=== PATIENT | female | born 1990 | race Caucasian/White ===

== ENCOUNTER 2016-12-06 15:02 | Inpatient (IN) | payer MEDICAID ==
[~2016-12-06] VITALS: Ht 157.5 cm; Wt 77.0 kg
[2016-12-06 15:05] VITALS: Ht 157.5 cm; Wt 77.0 kg
[2016-12-06] MEDS ORDERED: ONDANSETRON 4 MG INJ IV STA ×2 (18:45→20:45)
[2016-12-06] MEDS ORDERED: morphine 4 MG/ML VIAL IV STA ×2 (18:45→20:45)
[2016-12-06] MEDS ORDERED: SOD CHLORIDE 0.9% 100 ML IV STA (18:45)
[2016-12-06 19:25] LABS: ADD UMIC NO; URINE BILIRUBIN (Dip) NEGATIVE (NEGATIVE); URINE BLOOD (Dip) NEGATIVE (NEGATIVE); URINE COLOR LT. YELLOW (YELLOW); URINE GLUCOSE (Dip) NEGATIVE (NEGATIVE); URINE KETONES (Dip) NEGATIVE (NEGATIVE); URINE LEUKOCYTE ESTERASE (Dip) NEGATIVE (NEGATIVE); URINE NITRITE (Dip) NEGATIVE (NEGATIVE); URINE TOTAL PROTEIN (Dip) NEGATIVE (NEGATIVE); URINE UROBILINOGEN (Dip) 0.2 E.U./dL (0.1-1.0)
[2016-12-06 19:33] LABS: BASOPHILS % 0.5 % (0.0-2.0); EOSINOPHILS # 0.2 10^3/ul (0.0-0.5); EOSINOPHILS % 2.2 % (0.0-7.0); HEMATOCRIT 40.4 % (37.0-47.0); HEMOGLOBIN 13.8 g/dl (12.0-16.0); LYMPHOCYTES # 2.2 10^3/ul (0.8-2.9); LYMPHOCYTES % 22.3 % (15.0-51.0); MEAN CORPUSCULAR HEMOGLOBIN 29.8 pg (29.0-33.0); MEAN CORPUSCULAR HGB CONC 34.2 g/dl (32.0-37.0); MEAN CORPUSCULAR VOLUME 87.4 fl (82.0-101.0); MEAN PLATELET VOLUME 7.8 fl (7.4-10.4); MONOCYTE # 0.6 10^3/ul (0.3-0.9); MONOCYTES % 6.1 % (0.0-11.0); NEUTROPHIL # 6.7 10^3/ul (1.6-7.5); NEUTROPHILS % 68.9 % (39.0-77.0); PLATELET COUNT 356 10^3/UL (140-440); RED BLOOD COUNT 4.63 10^6/ul (4.20-5.40); RED CELL DISTRIBUTION WIDTH 13.5 % (11.5-14.5); UNCORRECTED WBC 9.8 10^3/ul (4.8-10.8); WHITE BLOOD COUNT 9.8 10^3/ul (4.8-10.8)
--- NOTE | 2016-12-06 19:35 | ERD ---
ER Documentation Chief Complaint Date/Time DATE: 12/06/16 TIME: 19:30 Chief Complaint PLEVIC PAIN, HAS ALWAYS PRE MENSES SAID HPI Patient is a 26-year-old female who presents to the ED with right low back pain , pelvic pain that radiates to her right knee. She states that this pain has been constant for the last 2 days but it has been getting worse today. She denies any trauma or injury. She states that she developed rlq pain 10 days and states it has gotten worse in the last 2 days ago. She describes it as a crampy sensation, 10 out of 10. She states that she is unable to walk due to the pain in her leg. She states that she has to lift her leg up to walk. she states that today at the gym, she collapsed from the pain. Denies urinary symptoms. Denies fever or chills. She has been taking ibuprofen with no relief of symptoms. Denies abnormal vaginal bleeding. Last menstrual period was 11/22/16. Denies leg pain or swelling. Denies chest pain, cough, shortness of breath or difficulty breathing. ROS All systems reviewed and are negative except as per history of present illness. Medications Home Meds Reported Medications [None] No Conflict Check 10/18/12 Allergies Allergies: Coded Allergies: No Known Drug Allergies (Verified Allergy, Unknown, 12/06/16) Uncoded Allergies: NONE (Allergy, Unknown, 12/06/16) PMhx/Soc Medical and Surgical Hx: pt denies Medical Hx, pt denies Surgical Hx History of Surgery: No Anesthesia Reaction: No Hx Neurological Disorder: No Hx Respiratory Disorders: No Hx Cardiac Disorders: No Hx Psychiatric Problems: No Hx Miscellaneous Medical Probl: No Hx Alcohol Use: No Hx Substance Use: No Hx Tobacco Use: No Smoking Status: Never smoker Physical Exam Vitals Vital Signs Date Time Temp Pulse Resp B/P Pulse Ox O2 Delivery O2 Flow Rate FiO2 12/06/16 15:05 98.1 78 18 139/75 99 Physical Exam GENERAL: Well-developed, well-nourished female. Appears in mild distress. LUNG: Clear to auscultation bilaterally. No rhonchi, wheezing, rales or coarse breath sounds. HEART: Regular rate and rhythm. No murmurs, rubs or gallops. ABDOMEN: No scars, ecchymosis or rashes noted. very tender in rlq and right pelvic area. . Positive bowel sounds in all four quadrants. guarding. tender in right CVA. Extremities: Equal pulses bilaterally. No peripheral clubbing, cyanosis or edema. No unilateral leg swelling. NEUROLOGIC: Alert and oriented. Moving all four extremities. 5/5 strength in all extremities. Normal speech. non steady gait. SKIN: Normal color. Warm and dry. No rashes or lesions. Capillary refill < 2 seconds Result Diagram: 12/06/16190912/06/161909 Results 24 hrs Laboratory Tests Test 12/06/16 19:00 12/06/16 19:10 Urine Bilirubin NEGATIVE Urine Clarity CLEAR Urine Color LT. YELLOW Urine Glucose NEGATIVE% Urine Hemoglobin NEGATIVE Urine Ketones NEGATIVE Urine Leukocyte Esterase NEGATIVE Urine Nitrite NEGATIVE Urine Test NEGATIVE Urine Specific [place] 1.015 Urine Total Protein NEGATIVE Urine Urobilinogen 0.2 E.U./dL Urine pH 6.0 Alanine Aminotransferase (ALT/SGPT) 28IU/L Albumin 4.6g/dl Albumin/Globulin Ratio 1.06 Alkaline Phosphatase 83IU/L Anion Gap 17 Aspartate Amino Transf (AST/SGOT) 25IU/L Basophils # 0.010^3/ul Basophils % 0.5% Blood Urea Nitrogen 12mg/dl Calcium Level 9.3mg/dl Carbon Dioxide Level 29mmol/L Chloride Level 101mmol/L Creatinine 0.73mg/dl Direct Bilirubin 0.00mg/dl Eosinophils # 0.210^3/ul Eosinophils % 2.2% Globulin 4.30g/dl Glucose Level 88mg/dl Hematocrit 40.4% Hemoglobin 13.8g/dl Indirect Bilirubin 0.6mg/dl Lipase 80U/L Lymphocytes # 2.210^3/ul Lymphocytes % 22.3% Mean Corpuscular Hemoglobin 29.8pg Mean Corpuscular Hemoglobin Concent 34.2g/dl Mean Corpuscular Volume 87.4fl Mean Platelet Volume 7.8fl Monocytes # 0.610^3/ul Monocytes % 6.1% Neutrophils # 6.710^3/ul Neutrophils % 68.9% Nucleated Red Blood Cells # 0.010^3/ul Nucleated Red Blood Cells % 0.0/100WBC Platelet Count 24933^3/UL Potassium Level 3.8mmol/L Red Blood Count 4.6310^6/ul Red Cell Distribution Width 13.5% Sodium Level 143mmol/L Total Bilirubin 0.6mg/dl Total Protein 8.9g/dl White Blood Count 9.810^3/ul Current Medications Medications (Trade) Dose Ordered Sig/Fabio Route PRN Reason Start Time Stop Time Status Last Admin Dose Admin Sodium Chloride (NS) 100 ml @ 100 mls/hr Q1H STAT IV 12/06/16 18:45 12/06/16 19:44 DC 12/06/16 19:14 Morphine Sulfate (morphine) 4 mg ONCE STAT IV 12/06/16 18:45 12/06/16 18:48 DC 12/06/16 19:14 Ondansetron HCl (Zofran Inj) 4 mg ONCE STAT IV 12/06/16 18:45 12/06/16 18:48 DC 12/06/16 19:14 Morphine Sulfate (morphine) 4 mg ONCE STAT IV 12/06/16 20:45 12/06/16 20:46 DC 12/06/16 20:54 Ondansetron HCl (Zofran Inj) 4 mg ONCE STAT IV 12/06/16 20:45 12/06/16 20:46 DC 12/06/16 20:54 Hydromorphone HCl 1 mg 1 mg ONCE STAT IV 12/06/16 21:24 12/06/16 21:25 DC 12/06/16 21:33 Sodium Chloride (NS) 1,000 ml @ 1,000 mls/hr Q1H ONCE IV 12/06/16 21:30 12/06/16 22:29 DC 12/06/16 21:35 Procedures/MDM ER COURSE: I kept the patient and/or family informed of laboratory and diagnostic imaging results throughout the emergency room course. EKG, MONITORS, & DIAGNOSTIC IMAGING: [place] [address] Radiology Main Line: [phone] DIAGNOSTIC IMAGING REPORT Patient: BHUPINDER MELTON : 1990 Age: 26 Sex: F MR #: [id number] DOS: 12/06/16 1845 Ordering MD: OSCAR RAINES PA-C Location: [facility] Room/Bed: PROCEDURE: CT abdomen and pelvis without contrast. CLINICAL INDICATION: Right-sided abdominal and back pain TECHNIQUE: CT scan of the abdomen and pelvis without contrast was performed on a multislice CT scanner utilizing axial imaging from the lung bases through the pubis symphysis. The patient was scanned without intravenous contrast. Sagittal and coronal reformatted images were made. The CTDIvol is 10.08 mGy and the DLP is 507.18 mGycm. One of the following 3 dose reduction techniques were used during this CT examination: automated exposure control; adjustment of the mA and /or kV according to patient size; or use of iterative reconstruciton technique. COMPARISON: 11/13/2007 CT FINDINGS: The lung bases are clear. The heart size is normal. No pericardial or pleural effusion is present. The visualized liver and, spleen, pancreas, gallbladder, bilateral adrenal glands are normal. The bilateral kidneys are normal. No evidence for hydroureteronephrosis or nephroureterolithiasis is present. The visualized bowel is nonobstructive. No evidence for diverticulosis, diverticulitis, or appendicitis is present. The visualized aorta is normal on this limited noncontrast CT without evidence for aneurysmal dilatation. No evidence for ascites, pneumoperitoneum, or pathologic lymphadenopathy is noted. The visualized pelvis demonstrates a moderately well distended urinary bladder. The uterus is normal with an intrauterine device present. Small amount of pelvic ascites is present. The bilateral adnexa are normal. The imaged osseous structures are normal. IMPRESSION: 1. No evidence for acute intra-abdominal or pelvic pathology. 2. Intrauterine device in the uterus with mild pelvic ascites. [place] [address] Radiology Main Line: [phone] DIAGNOSTIC IMAGING REPORT Patient: BHUPINDER MELTON : 1990 Age: 26 Sex: F MR #: [id number] DOS: 12/06/16 1845 Ordering MD: OSCAR RAINES PA-C Location: [facility] Room/Bed: PROCEDURE: US Pelvis and a limited ultrasound of the abdomen CLINICAL INDICATION: pelvic pain r/o torsion TECHNIQUE: Multiple sonographic images of the pelvis and right lower abdominal quadrant were obtained utilizing a transabdominal and endovaginal technique. The images were reviewed on a PACS workstation. COMPARISON: None. LMP: 11/22/2016 FINDINGS: The uterus measures 7.0 x 3.4 x 4.7 cm. The endometrial echo complex measures 8 mm in thickness. An appropriately positioned intrauterine device is noted. The right ovary measures 3.8 x 1.6 x 3.4 cm. The left ovary measures 3.7 x 1.9 x 2.9 cm. There is normal vascular flow in both ovaries. Multiple sub centimeter peripheral ovarian follicles are noted on the right. There is moderate to severe free fluid in the right adnexa. Trace free fluid is noted in the left adnexa. Loops of bowel are noted in the right lower abdominal quadrant. The appendix is not identified. IMPRESSION: Moderate to severe fluid is noted primarily in the right adnexa. No complex cystic lesions are identified in the right ovary to suggest rupture of a hemorrhagic cyst. Clinical correlation is recommended. The left ovary is unremarkable. There is normal vascular flow in bilateral ovaries. An appropriately positioned intrauterine device is noted. The appendix is not identified. Consider obtaining a CT study with intravenous contrast for further evaluation of possible appendicitis as well as the source of the free fluid in the right adnexa. RPTAT: EE Physician Arnold Date Time Electronically viewed and signed by Physician Arnold on 12/06/2016 20:38 RA/ CC: OSCAR RAINES PA-C RPTAT: HDC .Digna Mcgrath MD, MD Date Time Electronically viewed and signed by .Digna Mcgrath MD, MD on 12/06/2016 20: 48 .C/ CC: OSCAR RAINES PA-C LAB INTERPRETATION: CBC showed no evidence of systemic infection or severe anemia. CMP showed no evidence of electrolyte abnormalities, severe acidosis, alkalosis, renal failure , or liver disease. Lipase showed no evidence of acute pancreatitis. UA showed no evidence of leukocytes, nitrites or hematuria. Urine test was negative. MEDICAL DECISION MAKING: This is a 26-year-old female who presents with [right lower quadrant pain and right pelvic pain]. Vital signs were reviewed. Patient is afebrile. Patient is not hypoxic. Patient describes her pain as a 10 out of 10. I have ordered a morphine, Zofran and 2 L of fluid. Patient is still in 10 out of 10 pain I have consulted with Dr. Gibbs was ordered Dilaudid. Patient states there is no improvement in her pain. Dr. Gibbs came to bedside to examine patient and will be admitting patient. Patient is stable at transfer to ED1. Diagnosis: abdominal pain, intractable pain Departure Diagnosis: Primary Impression: Pelvic pain Condition: OSCAR Dunn PA-C Dec 06, 2016 19:35
[2016-12-06 19:36] LABS: ALBUMIN 4.6 g/dl (3.3-4.9)
[2016-12-06 19:37] LABS: POTASSIUM 3.8 mmol/L (3.5-5.1)
[2016-12-06 19:39] LABS: ALBUMIN/GLOBULIN RATIO 1.06; BILIRUBIN,INDIRECT 0.6 mg/dl (0-1.1); BILIRUBIN,TOTAL 0.6 mg/dl (0.2-1.3); CREATININE 0.73 mg/dl (0.44-1.00); TOTAL PROTEIN 8.9 g/dl (6.1-8.1)
[2016-12-06 19:40] LABS: CALCIUM 9.3 mg/dl (8.4-10.2)
[2016-12-06 19:44] LABS: CONDITION 1
--- NOTE | 2016-12-06 20:38 | RADRPT ---
PROCEDURE: US Pelvis and a limited ultrasound of the abdomen CLINICAL INDICATION: pelvic pain r/o torsion TECHNIQUE: Multiple sonographic images of the pelvis and right lower abdominal quadrant were obtai matilde utilizing a transabdominal and endovaginal technique. The images were reviewed on a PACS works tation. COMPARISON: None. LMP: 11/22/2016 FINDINGS: The uterus measures 7.0 x 3.4 x 4.7 cm. The endometrial echo complex measures 8 mm in thickness. A n appropriately positioned intrauterine device is noted. The right ovary measures 3.8 x 1.6 x 3.4 cm. The left ovary measures 3.7 x 1.9 x 2.9 cm. There is no rmal vascular flow in both ovaries. Multiple sub centimeter peripheral ovarian follicles are noted o n the right. There is moderate to severe free fluid in the right adnexa. Trace free fluid is noted in the left a dnexa. Loops of bowel are noted in the right lower abdominal quadrant. The appendix is not identified. IMPRESSION: Moderate to severe fluid is noted primarily in the right adnexa. No complex cystic lesions are iden tified in the right ovary to suggest rupture of a hemorrhagic cyst. Clinical correlation is recomme nded. The left ovary is unremarkable. There is normal vascular flow in bilateral ovaries. An appropriately positioned intrauterine device is noted. The appendix is not identified. Consider obtaining a CT study with intravenous contrast for further evaluation of possible appendicitis as well as the source of the free fluid in the right adnexa. RPTAT: EE Physician Arnold Date Time Electronically viewed and signed by Physician Arnold on 12/06/2016 20:38 /
--- NOTE | 2016-12-06 20:48 | RADRPT ---
PROCEDURE: CT abdomen and pelvis without contrast. CLINICAL INDICATION: Right-sided abdominal and back pain TECHNIQUE: CT scan of the abdomen and pelvis without contrast was performed on a multislice CT [facility] utilizing axial imaging from the lung bases through the pubis symphysis. The patient was scann ed without intravenous contrast. Sagittal and coronal reformatted images were made. The CTDIvol is 10.08 mGy and the DLP is 507.18 mGycm. One of the following 3 dose reduction techniques were used during this CT examination: automated exp osure control; adjustment of the mA and /or kV according to patient size; or use of iterative recons truciton technique. COMPARISON: 11/13/2007 CT FINDINGS: The lung bases are clear. The heart size is normal. No pericardial or pleural effusion is present. The visualized liver and, spleen, pancreas, gallbladder, bilateral adrenal glands are normal. The bilateral kidneys are normal. No evidence for hydroureteronephrosis or nephroureterolithiasis is pr esent. The visualized bowel is nonobstructive. No evidence for diverticulosis, diverticulitis, or appendic itis is present. The visualized aorta is normal on this limited noncontrast CT without evidence for aneurysmal dilata tion. No evidence for ascites, pneumoperitoneum, or pathologic lymphadenopathy is noted. The visualized pelvis demonstrates a moderately well distended urinary bladder. The uterus is camron l with an intrauterine device present. Small amount of pelvic ascites is present. The bilateral ad nexa are normal. The imaged osseous structures are normal. IMPRESSION: 1. No evidence for acute intra-abdominal or pelvic pathology. 2. Intrauterine device in the uterus with mild pelvic ascites. RPTAT: HDC .Digna Mcgrath MD, MD Date Time Electronically viewed and signed by .Digna Mcgrath MD, MD on 12/06/2016 20:48 .C/
[2016-12-06] MEDS ORDERED: HYDROmorphONE 1 MG/ML SYG IV STA (21:24)
[2016-12-06] MEDS ORDERED: SOD CHLORIDE 0.9% 1,000 ML IV ONE (21:30)
[2016-12-06] MEDS ORDERED: ONDANSETRON 4 MG INJ IV PRN (23:00)
[2016-12-06] MEDS ORDERED: ACETAMINOPHEN 325 MG TAB PO PRN (23:00)
[2016-12-06 23:36] VITALS: PULSE 60; TEMP 98.5
[2016-12-07 00:24] VITALS: BP 107/53; RESP 18
[2016-12-07] MEDS ORDERED: ONDANSETRON 4 MG INJ IV PRN (01:00)
[2016-12-07] MEDS: DEXTROSE 5%-0.45% NACL 1,000 ML IV SCH ×2 (01:13→14:19)
[2016-12-07] MEDS: morphine 4 MG/ML VIAL IV PRN ×3 (02:44→17:12)
[2016-12-07 05:36] LABS: BASOPHILS % 0.5 % (0.0-2.0); EOSINOPHILS # 0.2 10^3/ul (0.0-0.5); EOSINOPHILS % 2.4 % (0.0-7.0); HEMATOCRIT 32.4 % (37.0-47.0); HEMOGLOBIN 11.1 g/dl (12.0-16.0); LYMPHOCYTES # 2.1 10^3/ul (0.8-2.9); LYMPHOCYTES % 29.2 % (15.0-51.0); MEAN CORPUSCULAR HEMOGLOBIN 30.1 pg (29.0-33.0); MEAN CORPUSCULAR HGB CONC 34.3 g/dl (32.0-37.0); MEAN CORPUSCULAR VOLUME 87.7 fl (82.0-101.0); MEAN PLATELET VOLUME 7.6 fl (7.4-10.4); MONOCYTE # 0.7 10^3/ul (0.3-0.9); NEUTROPHIL # 4.3 10^3/ul (1.6-7.5); NEUTROPHILS % 58.9 % (39.0-77.0); PLATELET COUNT 280 10^3/UL (140-440); RED BLOOD COUNT 3.69 10^6/ul (4.20-5.40); RED CELL DISTRIBUTION WIDTH 12.9 % (11.5-14.5); UNCORRECTED WBC 7.3 10^3/ul (4.8-10.8); WHITE BLOOD COUNT 7.3 10^3/ul (4.8-10.8)
[2016-12-07] MEDS ORDERED: PANTOPRAZOLE 40 MG INJ IV SCH (06:00)
[2016-12-07 06:22] LABS: POTASSIUM 3.5 mmol/L (3.5-5.1)
[2016-12-07 06:24] LABS: CREATININE 0.71 mg/dl (0.44-1.00)
[2016-12-07 06:25] LABS: CALCIUM 8.2 mg/dl (8.4-10.2)
[2016-12-07 06:54] LABS: CONDITION 1
[2016-12-07 08:48] VITALS: BP 97/46; RESP 18
--- NOTE | 2016-12-07 17:31 | HP ---
Date/Time of Note Date/Time of Note DATE: 12/07/16 TIME: 17:25 Assessment/Plan VTE Prophylaxis VTE Prophylaxis Intervention: LMWH Lines/Catheters IV Catheter Type (from Nrsg): Peripheral IV Assessment/Plan Assessment/Plan 1. Right lower back, buttock, and right thigh pain, muscular sprain, MRI of L- spine to r/o disc disease HPI/ROS Admit Date/Time Admit Date/Time Dec 06, 2016 at 22:43 Hx of Present Illness 26 years old female without significant PMH who did exercise with lifting on last Sunday. She developed right lower back, right buttock, and right thigh pain next morning. The pain is worse when she moves. No fever or chills. ROS Constitutional: No chills, No diaphoresis, No disoriented, No fatigue, No febrile, No nausea, No poor po, No weight change Eyes: No discharge, No pain, No redness, No visual change ENT: No bleeding, No congestion, No discharge, No dysphagia, No pain, No sore throat Respiratory: No cough, No pain, No pleuritic pain, No shortness of breath, No sputum, No wheezing Cardiovascular: No chest pain, No edema, No lightheadedness, No orthopenea, No palpitations, No paroxysmal nocturnal dyspnea Gastrointestinal: No blood, No constipation, No decreased appetite, No diarrhea , No flatus, No nausea, No pain, No passing stool, No vomiting Genitourinary: No bleeding, No discharge, No dysuria, No flank pain, No hematuria Skin: No bruising, No erythema, No laceration, No pruritis, No rash, No skin lesions Neurologic: No confusion, No dizziness, No focal-weakness, No headache, No seizure, No syncope Endocrine: No dry skin, No polydypsia, No polyuria, No temp intolerance, No weight change PMH/Family/Social Past Medical History Medical History: no pertinent history Past Surgical History Past Surgical Hx: no surgical history Family History Significant Family History: no pertinent family hx Social History Alcohol Use: none Smoking Status: Never smoker Drug Use: none Exam/Review of Systems Vital Signs Vitals Vital Signs Date Time Temp Pulse Resp B/P Pulse Ox O2 Delivery O2 Flow Rate FiO2 12/07/16 08:48 98.1 50 18 97/46 98 12/06/16 23:36 Room Air Intake and Output 2/1/17 2/1/17 2/2/17 15:00 23:00 07:00 Intake Total 300 ml Balance 300 ml Exam Constitutional: alert, oriented, well developed Psych: nl mood/affect, no complaints Head: atraumatic, normocephalic Eyes: EOMI, nl conjunctiva, nl lids ENMT: nl external ears & nose, nl lips & teeth, nl nasal mucosa & septum Neck: non-tender, supple Respiratory: clear to auscultation, normal air movement, No congested cough, No crackles/rales, No diminished breath sounds, No intercostal retraction, No labored breathing, No respirations, No tactile fremitus, No wheezing Cardiovascular: nl pulses, regular rate and rhythm, No S3, No S4, No bruits, No diastolic murmur, No edema, No gallop, No irregular rhythm, No jugular venous distention (JVD), No murmurs/extra sounds, No rub, No systolic murmur Gastrointestinal: nl liver, spleen, non-tender, soft, No ascites, No bowel sounds, No distended, No firm, No hepatomegaly, No mass , No rebound or guarding, No splenomegaly, No surgical scars, No tender Musculoskeletal: nl extremities to inspection, other (muscle tenderness on right lower back, right buttock, and right thigh) Extremities: No calf tenderness, No clubbing, No cyanosis, No edema, No palpable cord, No pitting pedal edema, No tenderness 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, nl mental status, nl speech, nl strength Skin: nl turgor, rash or lesions Lymph: nl lymph nodes Labs Result Diagram: 12/07/16 0440 12/07/16 0440 Medications Medications Current Medications Dextrose/Sodium Chloride (D5-1/2ns) 1,000 ml @ 75 mls/hr [id number] IV Last administered on 12/07/16 14:19; Admin Dose 75 MLS/HR; Start 12/07/16 at 01:00 Pantoprazole (Protonix Iv) 40 mg DAILY@06 IV Last administered on 12/07/16 05: 42; Admin Dose 40 MG; Start 12/07/16 at 06:00 Morphine Sulfate (morphine) 3 mg Q6 PRN IV pain Last administered on 12/07/16 17:12; Admin Dose 3 MG; Start 12/07/16 at 01:00 Ondansetron HCl (Zofran Inj) 4 mg Q6H PRN IV NAUSEA AND/OR VOMITING Last administered on 12/07/16 02:44; Admin Dose 4 MG; Start 12/07/16 at 01:00 PILAR RODRIGUEZ MD Dec 07, 2016 17:31
[2016-12-07] MEDS ORDERED: OXYCODONE/ACETAMINOPHEN (5/325) TAB PO PRN (18:00)
--- NOTE | 2016-12-07 19:00 | RADRPT ---
PROCEDURE: CT lumbar spine without contrast CLINICAL INDICATION: Right leg pain, back pain. TECHNIQUE: A CT scan of the lumbar spine was performed without intravenous contrast. Coronal and s agittal reformatted images were generated. CTDIvol: 14.55 mGy. DLP: 489.60 mGy-cm. COMPARISON: None available FINDINGS: The lumbar lordosis is preserved without spondylolisthesis. The vertebral body heights are maintain ed. Bone mineralization is normal and there is no suspicious osseous lesion. No fracture or sublux ation is identified. There is no significant degenerative change. No spinal canal stenosis or neural foraminal narrowing is seen. There is intrauterine device place within the endometrial canal. There is a small volume of free pel alethea fluid. IMPRESSION: 1. No lumbar spine fracture or subluxation. 2. No significant degenerative changes. There is no spinal canal stenosis or neural foraminal narr owing. 3. Intrauterine device in place. 4. Small volume free pelvic fluid. RPTAT: HTAR .Hu Middleton MD, MD Date Time Electronically viewed and signed by .Hu Middleton MD, on 12/07/2016 19:00 .R/
[2016-12-07 20:56] VITALS: BP 116/63; RESP 18
[2016-12-07] MEDS: CARISOPRODOL 350 MG TAB PO SCH (21:09)
[2016-12-07] MEDS: ACETAMINOPHEN 325 MG TAB PO PRN (21:41)
[2016-12-07] MEDS: HYDROmorphONE 1 MG/ML SYG IV PRN (22:44)
[2016-12-08 07:59] VITALS: BP 107/54; RESP 16
[2016-12-08] MEDS: CARISOPRODOL 350 MG TAB PO SCH ×3 (08:35→21:00)
[2016-12-08] MEDS: HYDROmorphONE 1 MG/ML SYG IV PRN ×2 (14:41→21:44)
--- NOTE | 2016-12-08 15:55 | PN ---
Date/Time of Note Date/Time of Note DATE: 12/08/16 TIME: 15:52 Assessment/Plan VTE Prophylaxis VTE Prophylaxis Intervention: LMWH Lines/Catheters IV Catheter Type (from Nrsg): Peripheral IV Assessment/Plan Assessment/Plan 1. Right lower back, buttock, and right thigh pain, likely muscular sprain, MRI of L-spine to r/o disc disease Subjective 24 Hr Interval Summary Free Text/Dictation still has the pain, no improvement. States the elvis goes from the back of the right leg down to right foot. no incontinuence. Exam/Review of Systems Vital Signs Vitals Vital Signs Date Time Temp Pulse Resp B/P Pulse Ox O2 Delivery O2 Flow Rate FiO2 12/08/16 07:59 98.2 52 16 107/54 100 12/06/16 23:36 Room Air Intake and Output 12/07/16 12/07/16 12/08/16 15:00 23:00 07:00 Intake Total 360 ml Output Total 600 ml Balance -240 ml Exam Constitutional: alert, oriented, well developed Psych: nl mood/affect, no complaints Head: atraumatic, normocephalic Eyes: EOMI, PERRL, nl conjunctiva, nl lids, nl sclera ENMT: nl external ears & nose, nl lips & teeth, nl nasal mucosa & septum Neck: supple Respiratory: clear to auscultation, normal air movement, No congested cough, No crackles/rales, No diminished breath sounds, No intercostal retraction, No labored breathing, No respirations, No tactile fremitus, No wheezing Cardiovascular: nl pulses, regular rate and rhythm, No S3, No S4, No bruits, No diastolic murmur, No edema, No gallop, No irregular rhythm, No jugular venous distention (JVD), No murmurs/extra sounds, No rub, No systolic murmur Gastrointestinal: nl liver, spleen, non-tender, soft, No ascites, No bowel sounds, No distended, No firm, No hepatomegaly, No mass , No rebound or guarding, No splenomegaly, No surgical scars, No tender Extremities: other (right lower back/right thigh tenderness) 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, nl mental status, nl speech, nl strength Skin: nl turgor, rash or lesions Lymph: nl lymph nodes Results Result Diagram: 12/07/1643912/07/16439 Medications Medications Current Medications Ondansetron HCl (Zofran Inj) 4 mg Q6H PRN IV NAUSEA AND/OR VOMITING Last administered on 12/07/16 02:44; Admin Dose 4 MG; Start 12/07/16 at 01:00 Carisoprodol (Soma) 350 mg TID PO Last administered on 12/07/16 21:09; Admin Dose 350 MG; Start 12/07/16 at 21:00 Oxycodone/ Acetaminophen (Percocet (5/ 325)) 1 tab Q4H PRN PO PAIN; Start at 18:00 Hydromorphone HCl (Dilaudid) 1 mg Q4H PRN IV PAIN Last administered on 14:41; Admin Dose 1 MG; Start 12/07/16 at 18:00 Acetaminophen (Tylenol Tab) 650 mg Q6H PRN PO PAIN AND OR ELEVATED TEMP Last administered on 12/07/16 21:41; Admin Dose 650 MG; Start 12/07/16 at 21:30 PILAR RODRIGUEZ MD Dec 08, 2016 15:55
[2016-12-08] MEDS: ACETAMINOPHEN 325 MG TAB PO PRN (19:44)
[2016-12-08 20:31] VITALS: BP 114/67; RESP 18
--- NOTE | 2016-12-08 21:26 | RADRPT ---
PROCEDURE: MRI Lumbar Spine without. CLINICAL INDICATION: Lumbar spine pain. TECHNIQUE: An MRI of the lumbar spine was performed with multiple sequences in the sagittal and ax ial planes without contrast. Images reviewed on a high-resolution PACS system. COMPARISON: None available at the time of dictation. FINDINGS: The alignment of the lumbar spine is normal. No vertebral body subluxation is seen. The interverte bral discs are normal in height and signal intensity. The vertebral body heights and marrow signal are normal. The conus medullaris is visible at the L1-2 level and appears grossly normal. The lum bar nerve roots are normal in appearance. The paraspinal soft tissues are unremarkable. No signific ant paraspinal soft tissue swelling. L1-L2: The posterior margin of the disc is normal in appearance. No significant disc bulge or prot rusion is evident. The central canal and neural foramina are adequately patent. L2-L3: The posterior margin of the disc is normal in appearance. No significant disc bulge or prot rusion is evident. The central canal and neural foramina are adequately patent. L3-L4: The posterior margin of the disc is normal in appearance. No significant disc bulge or prot rusion is evident. The central canal and neural foramina are adequately patent. L4-L5: There is a 1 mm annular disc bulge without significant indentation on the ventral thecal sac . The thecal sac and lateral recesses are patent. The neural foramina are patent. L5-S1: There is a 1 mm annular disc bulge without significant indentation on the ventral thecal sac . The thecal sac and lateral recesses are patent. The neural foramina are patent. IMPRESSION: 1. Normal MRI of the lumbar spine. No significant narrowing of the lumbar thecal sac, lateral rece sses or neural foramina. RPTAT: HGAS .Jaycob Hall MD, Date Time Electronically viewed and signed by .Jaycob Hall MD, MD on 12/08/2016 21:25 .S/
[2016-12-09 08:06] VITALS: BP 119/54; RESP 18
[2016-12-09] MEDS: CARISOPRODOL 350 MG TAB PO SCH ×4 (09:00→21:00)
[2016-12-09] MEDS: HYDROmorphONE 1 MG/ML SYG IV PRN ×3 (09:33→23:01)
--- NOTE | 2016-12-09 14:33 | PN ---
Date/Time of Note Date/Time of Note DATE: 12/09/16 TIME: 14:31 Assessment/Plan VTE Prophylaxis VTE Prophylaxis Intervention: LMWH Lines/Catheters IV Catheter Type (from Nrsg): Peripheral IV Assessment/Plan Problems: (1) Pelvic pain Status: Acute Comment: I actually am not sure that this represents intra-abdominal pathology at all based on my examination. I suspect were dealing with her as a musculoskeletal injury I will image this to define it she may need an orthopedist Subjective 24 Hr Interval Summary Constitutional: no complaints (No fever chills or sweats) Eyes: no complaints ENT: no complaints Respiratory: no complaints Cardiovascular: no complaints Gastrointestinal: no complaints (GI symptoms are specifically denied) Genitourinary: no complaints (Specifically negative) Musculoskeletal: other (Patient has significant pain in the right lower extremity in the proximal aspect.) Exam/Review of Systems Vital Signs Vitals Vital Signs Date Time Temp Pulse Resp B/P Pulse Ox O2 Delivery O2 Flow Rate FiO2 12/09/16 08:06 98.3 56 18 119/54 98 12/06/16 23:36 Room Air Intake and Output 12/08/16 12/08/16 12/09/16 15:00 23:00 07:00 Intake Total 1360 ml 420 ml Balance 1360 ml 420 ml Exam Constitutional: alert, oriented Cardiovascular: nl pulses, regular rate and rhythm Musculoskeletal: other (Tenderness especially at the ilio pubic tendon. Consistent with torn hamstring) Results Result Diagram: 12/07/16 0440 12/07/16 0440 Medications Medications Current Medications Ondansetron HCl (Zofran Inj) 4 mg Q6H PRN IV NAUSEA AND/OR VOMITING Last administered on 12/07/16 02:44; Admin Dose 4 MG; Start 12/07/16 at 01:00 Carisoprodol (Soma) 350 mg TID PO Last administered on 12/07/16 21:09; Admin Dose 350 MG; Start 12/07/16 at 21:00 Oxycodone/ Acetaminophen (Percocet (5/ 325)) 1 tab Q4H PRN PO PAIN; Start at 18:00 Hydromorphone HCl (Dilaudid) 1 mg Q4H PRN IV PAIN Last administered on 09:33; Admin Dose 1 MG; Start 12/07/16 at 18:00 Acetaminophen (Tylenol Tab) 650 mg Q6H PRN PO PAIN AND OR ELEVATED TEMP Last administered on 12/08/16t 19:44; Admin Dose 650 MG; Start 12/07/16 at 21:30 NEGRO CORTEZ MD Dec 09, 2016 14:33
--- NOTE | 2016-12-09 19:17 | RADRPT ---
PROCEDURE: MRI OF THE RIGHT THIGH WITHOUT CONTRAST MATERIAL. CLINICAL INDICATION: Severe pain in the proximal right thigh. TECHNIQUE: Multiple MRI sequences were obtained in axial, sagittal, and coronal planes of the righ t thigh. Images were interpreted on a high-resolution PACS system. COMPARISON: None available. FINDINGS: Please see pelvis MRI dictation for details of the right hip and calcific tendinosis at the rectus f emoris tendon origin. There is no acute fracture or bone marrow edema within the right femur. There is no cortical destru ction, periosteal reaction, or an aggressive appearing bone lesion. The muscles around the right th igh are unremarkable. The subcutaneous soft tissues are unremarkable. The visualized sciatic nerve is unremarkable. RPTAT: HTLT IMPRESSION: Unremarkable MRI of the right thigh. .Kerrie Law MD, MD Date Time Electronically viewed and signed by .Kerrie Law MD, on 12/09/2016 19:16 .T/
--- NOTE | 2016-12-09 19:43 | RADRPT ---
PROCEDURE: MR PELVIS CLINICAL INDICATION: Severe pain in the proximal thigh for a few days. No known injury causing pain . TECHNIQUE: MRI of the pelvis was performed utilizing multiple sequences in multiple planes. Image s were reviewed on a high-resolution PACS workstation. COMPARISON: None FINDINGS: There is a small focus of calcification adjacent to the right anterior inferior iliac spine and rect us femoris tendon better seen on the CT abdomen/pelvis measuring up to 8 mm with moderate bone marro w edema within the anterior inferior iliac spine and anterior acetabulum. The rectus femoris tendon insertion is intact with mild tendinosis. There is edema and a small amount of ill-defined fluid i n the soft tissues adjacent to the rectus femoris tendon at its origin and surrounding the rectus fe galo muscle. Edema is also noted extending upstream deep to the iliacus muscle and anterior to the iliac wing. The iliopsoas, hamstring, and gluteal tendons are intact. There is no greater trochant anant or iliopsoas bursitis. There is no acute fracture or avascular necrosis of both hips. There is no bone marrow edema within the left hip. The articular cartilage of the hips is intact. The labrum is intact bilaterally. The re is no significant joint effusion. The muscles and tendons around the left hip are unremarkable. The pubic symphysis is intact. The adductor muscles and adductor tendon origins are intact. The bilateral sacroiliac joints are intact. The pelvic structures are grossly unremarkable. A small amount of free fluid is present within the pelvis. No pelvic lymphadenopathy is present. RPTAT: ZZ IMPRESSION: Small 8 mm focus of calcific tendinosis/hydroxyapatite deposition adjacent to the right anterior inf erior iliac spine and rectus femoris tendon origin with bone marrow edema and adjacent soft tissue e monae. The edema extends deep to the iliacus muscle in the pelvis. .Kerrie Law MD, MD Date Time Electronically viewed and signed by .Kerrie Law MD, on 12/09/2016 19:43 .T/
[2016-12-09 23:15] VITALS: BP 122/75; RESP 19
[2016-12-10] MEDS ORDERED: NAPROXEN 500 MG TAB PO ONE (07:30)
[2016-12-10 08:35] VITALS: BP 107/58; RESP 16
[2016-12-10] MEDS: CARISOPRODOL 350 MG TAB PO SCH ×3 (09:00→21:00)
[2016-12-10] MEDS: HYDROmorphONE 1 MG/ML SYG IV PRN ×2 (11:18→22:31)
--- NOTE | 2016-12-10 12:13 | PN ---
Date/Time of Note Date/Time of Note DATE: 12/10/16 TIME: 12:10 Assessment/Plan VTE Prophylaxis VTE Prophylaxis Intervention: other Lines/Catheters IV Catheter Type (from Nrsg): Saline Lock Assessment/Plan Problems: (1) Tendinitis of quadriceps Status: Acute Comment: She has been seen in consultation by orthopedics Dr. Mendoza. He is advised for her to have crutches but also go through formalized physical therapy instruction to protect the range of motion of the right hip. Given the logistics of the weekend she will stay and spend the night. Please note her symptoms are improved with use of NSAIDs. (2) Tendinitis of right hip flexor Status: Acute Comment: See above Subjective 24 Hr Interval Summary Free Text/Dictation Patient reports modest improvement in pain with usage of nonsteroidal anti- inflammatory drugs. See orthopedics consult Constitutional: no complaints (No fever chills or sweats) Respiratory: no complaints Cardiovascular: no complaints Gastrointestinal: no complaints Genitourinary: no complaints, other (Still with significant pain at the right hip) Exam/Review of Systems Vital Signs Vitals Vital Signs Date Time Temp Pulse Resp B/P Pulse Ox O2 Delivery O2 Flow Rate FiO2 12/10/16 08:35 98.2 54 16 107/58 99 12/06/16 23:36 Room Air Intake and Output 12/09/16 12/09/16 12/10/16 15:00 23:00 07:00 Intake Total 440 ml 1880 ml Balance 440 ml 1880 ml Exam Constitutional: alert, oriented Respiratory: clear to auscultation, normal air movement Cardiovascular: nl pulses, regular rate and rhythm Gastrointestinal: nl liver, spleen, non-tender, soft Results Result Diagram: 12/07/16 0440 12/07/16 0440 Medications Medications Current Medications Ondansetron HCl (Zofran Inj) 4 mg Q6H PRN IV NAUSEA AND/OR VOMITING Last administered on 12/07/16 02:44; Admin Dose 4 MG; Start 12/07/16 at 01:00 Carisoprodol (Soma) 350 mg TID PO Last administered on 12/07/16 21:09; Admin Dose 350 MG; Start 12/07/16 at 21:00 Oxycodone/ Acetaminophen (Percocet (5/ 325)) 1 tab Q4H PRN PO PAIN; Start at 18:00 Hydromorphone HCl (Dilaudid) 1 mg Q4H PRN IV PAIN Last administered on 11:18; Admin Dose 1 MG; Start 12/07/16 at 18:00 Acetaminophen (Tylenol Tab) 650 mg Q6H PRN PO PAIN AND OR ELEVATED TEMP Last administered on 12/08/16 19:44; Admin Dose 650 MG; Start 12/07/16 at 21:30 Naproxen (Naprosyn) 500 mg BID PO ; Start 12/10/16 at 21:00 NEGRO CORTEZ MD Dec 10, 2016 12:13
[2016-12-10] MEDS: ACETAMINOPHEN 325 MG TAB PO PRN (15:22)
--- NOTE | 2016-12-10 16:39 | CONS ---
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 According to the patient, the pain started about 2 wee ks prior to her admission after excessive physical activities doing the exercise. Following the deve lopment of the pain she was trying to manage the situation with pain medication; however, it was get ting worse and she collapsed at the gym doing the physical activities. She is having more pain in wolfgang harmon right inguinal and right iliac area and her pain is worse when she is moving her right lower extr emity and sometimes she has to move her right lower extremity with her hand because of the pain. PHYSICAL EXAMINATION: My examination revealed a 26-year-old female who is not in any acute distress . There was tenderness over the anterior iliac area near the anterior superior iliac spine and the vicinity. She was also having pain in the right inguinal area near the right pubic rami. During the attempted range of motion of her right hip the pain over this area was getting worse. There was no neurovascular compromise involving the right lower extremity and the rocking motion of the pelvic r ami was not provoking any pain. X-rays of the pelvis was essentially negative; however, the MRI scan of the pelvis was showing focus of calcific tendinosis and hydroxyapatite deposition over the area of rectus femoris tendon inserti on to the right anterior inferior iliac spine along with the bone marrow edema and soft tissue edema . The edema was extending down to the iliac in the pelvic area. DIAGNOSTIC IMPRESSION: Trauma and sprain involving trauma and sprain and tendinosis over the right i liac area near anterior inferior iliac spine near the insertion of the rectus femoris and also over the right ischium and pubic ramus near the insertion of the hamstring muscles, mostly from self-kendra shilpa trauma during her exercise activities. RECOMMENDATIONS FOR MANAGEMENT: 1. Obey the pain, meaning avoid any position or activities that cause pain. 2. Okay to be up with weightbearing minimizing range of motion around the right hip and obeying the pain. 3. Okay to be discharged for further followup as an outpatient. 4. May further followup by orthopod including possible steroid injection if symptom persists. Dictated By: LINDSEY LOMBARDI/PABLO Conf#: [id number] DID#: [id number]
[2016-12-10 20:16] VITALS: BP 124/63; RESP 16
[2016-12-10] MEDS: NAPROXEN 500 MG TAB PO SCH (21:12)
[2016-12-11] MEDS: CARISOPRODOL 350 MG TAB PO SCH ×2 (09:00→12:18)
[2016-12-11] MEDS: NAPROXEN 500 MG TAB PO SCH (10:23)
--- NOTE | 2016-12-11 14:02 | PDOCDIS ---
Discharge Instructions CONDITION Patient Condition: Good HOME CARE INSTRUCTIONS: Special Diet: regular ACTIVITY: Activity Restrictions: Slowly Increase Activity Rest between Activity Avoid heavy lifting No Sexual Activity Avoid Heavy Housework Keep Limb Elevated FOLLOW UP/APPOINTMENTS Appointments Follow up with PCP in one week Follow up with Orthopedic surgeon as out-pt MARCELLO SONI MD Dec 11, 2016 14:02
[2016-12-11] MEDS ORDERED: NAPR-260 PO (14:04)
[2016-12-11] MEDS ORDERED: CYCL5TAB PO (14:04)
[2016-12-11] MEDS ORDERED: Oxycodone/Acetamin (5/325) PO (14:04)
--- NOTE | 2016-12-12 00:38 | DS ---
DATE OF ADMISSION: 12/06/2016 DATE OF DISCHARGE: 12/11/2016 DIAGNOSES: 1. Tendinitis of quadriceps. 2. Tendinitis of the right hip flexor. DISCHARGE MEDICATIONS: 1. Flexeril. 2. Naproxen. 3. Percocet. ALLERGIES: NO KNOWN DRUG ALLERGIES. DISPOSITION: Home. HOSPITAL COURSE: This is a 26-year-old female with no significant past medical history who exercise d last Sunday and when she was lifting, she developed right lower back pain and right buttocks and r ight thigh pain. The following day, the pain was worsened and she was not able to move. Some fever and chills. The patient presented to [facility] Emergency Room. The lumbar spine CT show ed no lumbar spine fracture or subluxation, no significant degenerative changes. There is no spinal canal stenosis or neural foraminal narrowing. Intrauterine device in place. Small volume of free pelvic fluid. MRI of the spine shows normal MRI of the lumber spine and also narrowing of the lumba r thecal sac neural foramina. The patient was seen and evaluated by orthopedic surgeon and knight s been able to ambulate with crutches. The patient was placed on pain medication via Dilaudid, Perc ocet, and during the course of hospitalization. At this time, the patient is awake, alert, or iented, able to ambulate with minimal assist. At this time, patient is medically stable to be disch arged home with a close followup with primary care physician as outpatient. VITAL IGNS: Temperature 98.1, pulse 72, respirations 16, blood pressure 124/60, oxygen 99% on room air. CONDITION AT TIME OF DISCHARGE: Stable. FOLLOWUP: With orthopedic surgeon as outpatient. Follow up with PCP as outpatient. DIET: As tolerated. ACTIVITY: Light activity. Dictated By: MARCELLO SONI MD PN/NTS Conf#: [id number] DID#: [id number]
== END 2016-12-11 15:05 | disposition home or self-care (01) | DRG 558 ==
LOC: FTE 15:02 → PP2 22:43
PROVIDERS: ADMIT Internal Medicine; ATTEND Internal Medicine
DX: M76.891 Other specified enthesopathies of right lower limb, excluding foot (principal); S76.811A Strain of other specified muscles, fascia and tendons at thigh level, right thigh, initial encounter; X50.9XXA Other and unspecified overexertion or strenuous movements or postures, initial encounter; Y92.89 Other specified places as the place of occurrence of the external cause
CPT/HCPCS: 36415; 72131; 72148; 72195; 73721; 74176; 76830; 76856; 80048; 80053; 81003; 83690; 84703; 85025; 96374; 96375; 96376; 97161; C9113; J1170; J2270; J2405; J7030; J7040; J7042

== ENCOUNTER 2019-06-09 00:42 | Emergency (ER) | payer BC, MEDICAID ==
[~2019-06-09] VITALS: Ht 167.6 cm; Wt 76.0 kg
[~2019-06-09 00:42] MED LIST: CEPH-443 PO; CYCL5TAB PO; DOXY100T20 PO; METR500T PO; NAPR-985 PO; OXYC-279 PO; Oxycodone/Acetamin (5/325) PO
[2019-06-09 00:45] VITALS: Ht 167.6 cm; Wt 76.0 kg
[2019-06-09] MEDS ORDERED: KETOROLAC 60 MG INJ IM STA (01:06)
--- NOTE | 2019-06-09 01:16 | ERD ---
ER Documentation Chief Complaint Chief Complaint PELVIC PAIN WITH N/V; HX OF FIBROIDS HPI 28-year-old female presents with 3-day history of suprapubic pain. States that she is feels like there is needles poking her in that area. She also states is been having some dysuria. Denies any nausea, vomiting, diarrhea, back pain, flank pain, fevers, chills, hematuria. ROS All systems reviewed and are negative except as per history of present illness. Medications Home Meds Active Scripts Cephalexin* (Keflex*) 500 Mg Capsule, 500 MG PO BID for 7 Days, CAP Prov:CHARLIE BARRY 06/09/19 Oxycodone HCl/Acetaminophen (Percocet 5-325 mg Tablet) 1 Each Tablet, 1-2 EACH PO Q6, #10 TAB Prov:CHARLIE BARRY 06/09/19 Doxycycline Hyclate* (Doxycycline Hyclate*) 100 Mg Tablet.dr, 100 MG PO BID for 14 Days, TAB Prov:CHARLIE BARRY 06/09/19 Metronidazole* (Flagyl*) 500 Mg Tablet, 500 MG PO BID for 7 Days, TAB Prov:CHARLIE BARRY 06/09/19 Cyclobenzaprine Hcl* (Cyclobenzaprine Hcl*) 5 Mg Tablet, 5 MG PO TID PRN for PAIN LEVEL 6-10, #15 TAB Prov:MARCELLO SONI MD 12/11/16 [Oxycodone/Acetamin (5/325)] 1 TAB TAB No Conflict Check, 1 TAB PO Q4H PRN for PAIN for 1 Day Prov:MARCELLO SONI MD 12/11/16 Naproxen* (Naprosyn*) 500 Mg Tablet, 500 MG PO BID PRN for PAIN, #30 TAB Prov:MARCELLO SONI MD 12/11/16 Reported Medications [None] No Conflict Check 10/18/12 Allergies Allergies: Coded Allergies: No Known Drug Allergies (Verified Allergy, Unknown, 12/06/16) PMhx/Soc History of Surgery: No Anesthesia Reaction: No Hx Neurological Disorder: No Hx Respiratory Disorders: No Hx Cardiac Disorders: No Hx Psychiatric Problems: No Hx Miscellaneous Medical Probl: No Hx Alcohol Use: No Hx Substance Use: No Hx Tobacco Use: No FmHx Family History: No diabetes, No coronary disease, No other Physical Exam Vitals Vital Signs Date Temp Pulse Resp B/P (MAP) Pulse Ox O2 O2 Flow FiO2 Time Delivery Rate 06/09/19 98.6 69 19 162/95 100 00:45 (117) Physical Exam Const: No acute distress Head: Atraumatic Eyes: Normal Conjunctiva ENT: Normal External Ears, Nose and Mouth. Neck: Full range of motion. No meningismus. Resp: Clear to auscultation bilaterally Cardio: Regular rate and rhythm, no murmurs Abd: Tenderness palpation of the lower abdominal area bilaterally. Suprapubic tenderness palpation. Otherwise soft, non tender, non distended. Normal bowel sounds. Negative Gardner's. Skin: No petechiae or rashes Back: No midline or flank tenderness Ext: No cyanosis, or edema Neur: Awake and alert Psych: Normal Mood and Affect Result Diagram: 06/09/19 0121 06/09/19 0121 Results 24 hrs Laboratory Tests Test 06/09/19 01:21 06/09/19 01:59 White Blood Count 6.5 10^3/ul Red Blood Count 4.17 10^6/ul Hemoglobin 12.4 g/dl Hematocrit 36.3 % Mean Corpuscular Volume 87.1 fl Mean Corpuscular Hemoglobin 29.7 pg Mean Corpuscular Hemoglobin Concent 34.2 g/dl Red Cell Distribution Width 11.9 % Platelet Count 310 10^3/UL Mean Platelet Volume 9.4 fl Immature Granulocytes % 0.200 % Neutrophils % 51.1 % Lymphocytes % 37.8 % Monocytes % 5.6 % Eosinophils % 4.5 % Basophils % 0.8 % Nucleated Red Blood Cells % 0.0 /100WBC Immature Granulocytes # 0.010 10^3/ul Neutrophils # 3.3 10^3/ul Lymphocytes # 2.4 10^3/ul Monocytes # 0.4 10^3/ul Eosinophils # 0.3 10^3/ul Basophils # 0.1 10^3/ul Nucleated Red Blood Cells # 0.0 10^3/ul Urine Color STRAW Urine Clarity CLEAR Urine pH 6.0 Urine Specific [place] 1.004 Urine Ketones NEGATIVE mg/dL Urine Nitrite NEGATIVE mg/dL Urine Bilirubin NEGATIVE mg/dL Urine Urobilinogen NEGATIVE mg/dL Urine Leukocyte Esterase 1+ Radha/ul Urine Microscopic RBC 1 /HPF Urine Microscopic WBC 22 /HPF Urine Bacteria FEW /HPF Urine Hemoglobin 2+ mg/dL Urine Glucose NEGATIVE mg/dL Urine Total Protein NEGATIVE mg/dl Sodium Level 142 mmol/L Potassium Level 3.6 mmol/L Chloride Level 107 mmol/L Carbon Dioxide Level 24 mmol/L Anion Gap 11 Blood Urea Nitrogen 8 mg/dl Creatinine 0.62 mg/dl Est Glomerular Filtrat Rate mL/min > 60 mL/min Glucose Level 88 mg/dl Calcium Level 9.2 mg/dl Total Bilirubin 1.1 mg/dl Direct Bilirubin 0.00 mg/dl Indirect Bilirubin 1.1 mg/dl Aspartate Amino Transf (AST/SGOT) 21 IU/L Alanine Aminotransferase (ALT/SGPT) 19 IU/L Alkaline Phosphatase 66 IU/L Total Protein 8.1 g/dl Albumin 4.9 g/dl Globulin 3.20 g/dl Albumin/Globulin Ratio 1.53 POC Beta HCG, Qualitative NEGATIVE Current Medications Medications Dose Sig/Fabio Start Time Status Last (Trade) Ordered Route PRN Stop Time Admin Dose Reason Admin Ketorolac 60 mg ONCE STAT 06/09/19 DC 06/09/19 Tromethamine IM 01:06 06/09/19 02:22 (Toradol) 01:09 1 mg ONCE STAT 06/09/19 DC 06/09/19 Hydromorphone IM 02:14 06/09/19 02:22 HCl 02:15 (Dilaudid) Ondansetron 8 mg ONCE STAT 06/09/19 DC 06/09/19 HCl (Zofran ODT 02:14 06/09/19 02:23 Odt) 02:16 Ceftriaxone 1 gm ONCE ONCE 06/09/19 DC 06/09/19 Sodium IM 04:00 06/09/19 04:01 (Rocephin) 04:01 Lidocaine 5 ml ONCE ONCE 06/09/19 DC 06/09/19 (Xylocaine INJ 04:00 06/09/19 04:01 1% (Mpf)) 04:01 1 mg ONCE STAT 06/09/19 DC 06/09/19 Hydromorphone IV 04:35 06/09/19 04:58 HCl 04:37 (Dilaudid) 0.5 mg ONCE STAT 06/09/19 DC Hydromorphone IV 05:48 06/09/19 HCl 05:49 (Dilaudid) Procedures/MDM DIAGNOSTIC IMAGING REPORT Patient: BHUPINDER MELTON DOB: 1990 Age: 28 Sex: F MR #: [id number] DOS: 06/09/19 0000 Ordering MD: CHARLIE BARYR Location: [facility] Room/Bed: PROCEDURE: US Pelvis. CLINICAL INDICATION: Pelvic pain TECHNIQUE: Multiple sonographic images of the pelvis were obtained utilizing endovaginal technique. The images were reviewed on a PACS workstation. COMPARISON: None. FINDINGS: The uterus measures 7.3 x 3.5 x 5.6 cm. The endometrial echo complex measures 3 mm thickness and demonstrates normal echotexture.. An IUD is in place. No uterine lesions identified. The right ovary measures 3.5 x 2.3 x 2.6 cm and the left ovary measures 3.4 x 1.7 x 2.0 cm. There is a 2.2 x 1.6 x 1.5 cm complex cyst within the right ovary. Vascular flow to both ovaries is confirmed with Doppler imaging. There is a small amount of simple fluid in the posterior cul-de-sac and right adnexa. IMPRESSION: 1. Right ovarian 2.2 cm complex cyst favored to represent a hemorrhagic cyst. Small amount of free fluid in the right adnexa and posterior cul-de-sac. 2. IUD in place. RPTAT: [facility] Physician Satinder Date Time Electronically viewed and signed by Physician Satinder on 06/09/2019 04:21 xB/ CC: CHARLIE BARRY [id number] MDM: UA was positive for UTI. Patient's urine sent out for culture. In addition urogenital was positive for bacterial vaginosis patient will be given metronidazole. There is cervical motion tenderness on exam so patient will be treated for possible PID with ceftriaxone and doxycycline. In addition ultrasound was positive for ruptured ovarian cyst. Patient was given 1 mg of Dilaudid in the ER and pain was not resolved. Case was discussed with supervising physician who stated patient should be given another milligram of Dilaudid, up to 3 mg, and then admission can be considered. In the meantime patient can rest and recover in the ER. 1 more milligram of Dilaudid was given. Patient reassessed approximately 1 hour later and still had pain. Patient was given another 0.5 mg. I have low suspicion for ectopic , ovarian torsion, PID, tubo-ovarian abscess, uterine prolapse, ovarian cancer, uterine cancer, nephrolithiasis, pyelonephritis, appendicitis, diverticulitis, bowel obstruction, perirectal absc ess. At this time, patient is stable for discharge and outpatient management. I have instructed the patient to follow-up with his/her primary care physician in 1 day. I have discussed with the patient the possibility of needing to see a specialist for further workup and imaging studies if symptoms persist. I have instructed the patient to promptly return to the ER for any new or worsening symptoms including but not limited to increased pain, fever, nausea, vomiting, weakness or LOC. The patient and/or family expressed understanding of and agreement with this plan. All questions were answered. Home care instructions were provided. DISCLAIMER: Inadvertent spelling and grammatical errors are likely due to EHR/dictation software use and do not reflect on the overall quality of patient care. Also, please note that the electronic time recorded on this note does not necessarily reflect the actual time of the patient encounter. Departure Diagnosis: Primary Impression: Acute pain in female pelvis Additional Impressions: Hemorrhagic cyst UTI (urinary tract infection) Vaginosis Condition: Stable CHARLIE BARRY Jun 09, 2019 01:16
[2019-06-09] MEDS ORDERED: HYDROmorphONE 2 MG/ML SYG IM STA (02:14)
[2019-06-09] MEDS ORDERED: ONDANSETRON (ODT) 4 MG TAB ODT STA (02:14)
[2019-06-09] MEDS ORDERED: LIDOCAINE 1% (MPF) 5 ML VIAL INJ ONE (04:00)
[2019-06-09] MEDS ORDERED: CEFTRIAXONE 1 GM INJ IM ONE (04:00)
[2019-06-09] MEDS ORDERED: HYDROmorphONE 1 MG/ML SYG IV STA (04:35)
[2019-06-09] MEDS ORDERED: HYDROmorphONE 0.5 MG/0.5 ML SYG IV STA (05:48)
[2019-06-09] MEDS ORDERED: morphine 2 MG INJ IV STA (07:19)
[2019-06-09 07:35] VITALS: BP 114/65; PULSE 59; RESP 17
[2019-06-09] MEDS: ONDANSETRON (ODT) 4 MG TAB ODT STA ×2 (08:08→08:34)
== END 2019-06-09 08:35 | disposition home or self-care (01) ==
LOC: FTE 00:42
DX: N83.201 Unspecified ovarian cyst, right side (principal); N39.0 Urinary tract infection, site not specified; N76.0 Acute vaginitis
CPT/HCPCS: 36415; 76830; 76856; 80053; 81001; 81025; 85025; 87086; 87210; 87591; 96372; 96374; 96375; 96376; 99285; J0696; J1170; J1885; J2270